=== PATIENT | female | born 1995 | race Caucasian/White ===

== ENCOUNTER 2020-12-21 10:33 | Emergency (ER) | payer OTHER ==
[~2020-12-21] VITALS: Ht 170.2 cm; Wt 52.2 kg
[2020-12-21 10:41] VITALS: BP 133/80
[2020-12-21] MEDS ORDERED: NACL 0.9% 1,000 ML IV ONE (11:15)
[2020-12-21] MEDS ORDERED: KETOROLAC 30 MG/ML VIAL IVP ONE (11:15)
[2020-12-21 11:31] LABS: BASOPHILS % (AUTO) 0.5 % (0.0-2.0); EOSINOPHILS # (AUTO) 0.2 K/uL (0-0.4); EOSINOPHILS % (AUTO) 2.5 % (0.0-4.0); HEMATOCRIT 38.7 % (36-48); HEMOGLOBIN 13.2 g/dL (12.0-16.0); LYMPHOCYTES # (AUTO) 1.9 K/uL (2.5-16.5); LYMPHOCYTES % (AUTO) 28.3 % (20.5-51.1); MEAN CORPUSCULAR HEMOGLOBIN 31 pg (27-31); MEAN CORPUSCULAR HGB CONC 34 g/dL (33-37); MEAN CORPUSCULAR VOLUME 92.2 fL (80-94); MONOCYTES # (AUTO) 0.5 K/uL (0.8-1.0); MONOCYTES % (AUTO) 6.9 % (1.7-9.3); NEUTROPHILS # (AUTO) 4.1 K/uL (1.8-7.7); NEUTROPHILS % (AUTO) 61.8 % (42.2-75.2); PLATELET COUNT (AUTO) 217 K/uL (140-450); RED CELL DISTRIBUTION WIDTH 13.5 % (11.6-13.7); WHITE BLOOD COUNT (AUTO) 6.6 K/uL (4.8-10.8)
[2020-12-21 11:32] LABS: BILIRUBIN,URINE NEGATIVE (NEGATIVE); COLOR,URINE YELLOW (YELLOW); LEUKOCYTE ESTERASE ,URINE NEGATIVE (NEGATIVE); NITRITE, URINE NEGATIVE (NEGATIVE); UGLUCOSE NEGATIVE (NEGATIVE)
[2020-12-21 11:40] LABS: CREATININE 0.7 mg/dL (0.6-1.3)
[2020-12-21 11:40] LABS: WBC,URINE 0-5 /HPF (0-5)
[2020-12-21 11:43] LABS: APPEARANCE,URINE SLIGHTLY HAZY (CLEAR); BLOOD, URINE 1+ (NEGATIVE); RBC,URINE 0-5 /HPF (0-5)
[2020-12-21 11:46] LABS: ALBUMIN 4.2 g/dL (3.4-5.0); TOTAL BILIRUBIN 0.6 mg/dL (0.0-1.0)
[2020-12-21] MEDS ORDERED: DICYCLOMINE 20 MG/2 ML VIAL IM ONE (12:10)
[2020-12-21] MEDS ORDERED: BEN10 PO (13:06)
[2020-12-21 13:22] VITALS: BP 120/82
== END 2020-12-21 13:22 | disposition home or self-care (01) ==
LOC: MED 10:33
DX: R10.11 Right upper quadrant pain (principal)
CPT/HCPCS: 36415; 74177; 76705; 80053; 81001; 81025; 83690; 85025; 96361; 96372; 96374; 99285; J0500; J1885; J7030; Q9967

== ENCOUNTER 2021-12-22 11:05 | Emergency (ER) | payer OTHER ==
[~2021-12-22] VITALS: Ht 170.2 cm; Wt 51.7 kg
[~2021-12-22 11:05] MED LIST: BEN10 PO
[2021-12-22 11:10] VITALS: BP 126/63
--- NOTE | 2021-12-22 11:49 | NUR ---
26 Y/O FEMALE BIB SELF C/O VAGINAL BLEEDING X YESTERDAY. PT STATED THAT SHE HAD UNPROTECTED SEXUAL INTERCOURSE WITH HER BOYFRIEND YESTERDAY AND NOTED BLOOD DURING. DENIED ANY PAIN OR DISCOMFROT DURING OR AFTER. THIS MORNING THEY HAD ANOTHER ROUND OF INTERCOURSE BUT NOW PROTECTED, AGAIN NOTED BRIGHT RED BLEEDING ON THE AREA. AFTER A FEW HOURS NOW C/O OF BLOATING BY THE LOWER ABDOMEN AND PRESSURE, PAIN 7/10. STATED THAT THE BLEEDING IS NOW LIKE "SPOTTING". DENIED ANY DIZZINESS, PAIN IN THE VAGINAL AREA, OR LOWER BACK PAIN, DENIED ANY MEDICATION FOR PAIN NKA PMH: DENIED
--- NOTE | 2021-12-22 12:25 | NUR ---
PATIENT C/O FEELING ANXIOUS. DR. CHEN MADE AWARE.
--- NOTE | 2021-12-22 12:50 | NUR ---
LAB AT BEDSIDE
[2021-12-22 13:05] LABS: APPEARANCE,URINE CLEAR (CLEAR); BILIRUBIN,URINE 1+ (NEGATIVE); BLOOD, URINE 2+ (NEGATIVE); COLOR,URINE DARK YELLOW (YELLOW); LEUKOCYTE ESTERASE ,URINE NEGATIVE (NEGATIVE); NITRITE, URINE NEGATIVE (NEGATIVE); UGLUCOSE NEGATIVE (NEGATIVE)
[2021-12-22 13:06] LABS: BASOPHILS # (AUTO) 0.1 K/uL (0.00-0.22); BASOPHILS % (AUTO) 1.1 % (0.0-2.0); EOSINOPHILS # (AUTO) 0.1 K/uL (0-0.4); EOSINOPHILS % (AUTO) 1.2 % (0.0-4.0); HEMATOCRIT 36.7 % (36-48); HEMOGLOBIN 12.6 g/dL (12.0-16.0); LYMPHOCYTES # (AUTO) 1.6 K/uL (2.5-16.5); LYMPHOCYTES % (AUTO) 25.1 % (20.5-51.1); MEAN CORPUSCULAR HEMOGLOBIN 31 pg (27-31); MEAN CORPUSCULAR HGB CONC 34 g/dL (33-37); MONOCYTES # (AUTO) 0.5 K/uL (0.8-1.0); MONOCYTES % (AUTO) 7.7 % (1.7-9.3); NEUTROPHILS % (AUTO) 64.9 % (42.2-75.2); PLATELET COUNT (AUTO) 213 K/uL (140-450); RED BLOOD CELL COUNT(AUTO) 4.08 MIL/uL (4.20-5.40); WHITE BLOOD COUNT (AUTO) 6.2 K/uL (4.8-10.8)
--- NOTE | 2021-12-22 13:15 | NUR ---
Female Crystal Cutter accompanied female patient for Pelvic Exam.
[2021-12-22 13:28] LABS: RBC,URINE 0-5 /HPF (0-5)
[2021-12-22 13:29] LABS: WBC,URINE 0-5 /HPF (0-5)
[2021-12-22 13:30] LABS: CALCIUM OXALATE CRYSTALS,UR 0-10 /HPF (None Seen); OTHER CASTS, URINE None Seen /LPF (None Seen)
[2021-12-22 13:41] VITALS: BP 119/67
--- NOTE | 2021-12-22 13:43 | NUR ---
Patient discharged with v/s stable. Written and verbal after care instructions given and explained. Patient verbalized understanding. Ambulatory with steady gait. All questions addressed prior to discharge. Advised to follow up with PMD.
== END 2021-12-22 13:43 | disposition home or self-care (01) ==
LOC: MED 11:05
DX: N93.9 Abnormal uterine and vaginal bleeding, unspecified (principal); N83.209 Unspecified ovarian cyst, unspecified side
CPT/HCPCS: 36415; 76830; 81001; 81025; 85025; 86886; 86900; 86901; 87210; 87491; 99284; Q0092

== ENCOUNTER 2022-03-12 09:48 | Emergency (ER) | payer OTHER ==
[~2022-03-12] VITALS: Ht 170.2 cm; Wt 51.4 kg
[2022-03-12 09:54] VITALS: BP 98/71
--- NOTE | 2022-03-12 10:01 | NUR ---
PT AMB TO BED 11
--- NOTE | 2022-03-12 10:20 | NUR ---
WALKED IN C/O INTERMITTENT VAGINAL BLEED ONSET 2 MONTHS AGO. C/O WEAKNESS, NAUSEA ONSET 2 DAYS. DENIES TRAUMA OR . VSS, URINE COLLECTED PMH: ENDOMETRIOISIS. SEBASTIAN
[2022-03-12 10:48] LABS: BASOPHILS # (AUTO) 0.1 K/uL (0.00-0.22); BASOPHILS % (AUTO) 0.7 % (0.0-2.0); EOSINOPHILS # (AUTO) 0.2 K/uL (0-0.4); EOSINOPHILS % (AUTO) 2.5 % (0.0-4.0); HEMATOCRIT 42.1 % (36-48); HEMOGLOBIN 14.5 g/dL (12.0-16.0); LYMPHOCYTES # (AUTO) 2.2 K/uL (2.5-16.5); LYMPHOCYTES % (AUTO) 27.9 % (20.5-51.1); MEAN CORPUSCULAR HEMOGLOBIN 31 pg (27-31); MEAN CORPUSCULAR HGB CONC 34 g/dL (33-37); MEAN CORPUSCULAR VOLUME 89.9 fL (80-94); MONOCYTES # (AUTO) 0.7 K/uL (0.8-1.0); MONOCYTES % (AUTO) 8.3 % (1.7-9.3); NEUTROPHILS # (AUTO) 4.8 K/uL (1.8-7.7); NEUTROPHILS % (AUTO) 60.6 % (42.2-75.2); PLATELET COUNT (AUTO) 275 K/uL (140-450); RED BLOOD CELL COUNT(AUTO) 4.69 MIL/uL (4.20-5.40); WHITE BLOOD COUNT (AUTO) 7.9 K/uL (4.8-10.8)
--- NOTE | 2022-03-12 10:55 | NUR ---
US AT BEDSIDE
[2022-03-12 12:30] VITALS: BP 111/65
== END 2022-03-12 12:30 | disposition home or self-care (01) ==
LOC: MED 09:48
DX: N93.8 Other specified abnormal uterine and vaginal bleeding (principal); Z79.899 Other long term (current) drug therapy
CPT/HCPCS: 36415; 76830; 81002; 81025; 85025; 99284; Q0092

== ENCOUNTER 2022-10-25 16:42 | Emergency (ER) | payer OTHER ==
[~2022-10-25] VITALS: Ht 170.2 cm; Wt 55.3 kg
[2022-10-25 17:00] VITALS: BP 124/84
--- NOTE | 2022-10-25 17:20 | NUR ---
27/F WALKED IN ACCOMPANIED BY MOM C/O VAGINAL BLEED AND PELVIC PAIN. PT REPORTS TISSUE COMING OUT DURING THE BLEED. DENIES DYSURIA OR FREQUENCY. NKA PMH: GASTROPARESIS, ENDOMETRIOSIS
--- NOTE | 2022-10-25 17:44 | NUR ---
PT UNABLE TO PROVIDE URINE AT THIS TIME.
[2022-10-25 18:16] LABS: APPEARANCE,URINE CLEAR (CLEAR); BILIRUBIN,URINE NEGATIVE (NEGATIVE); BLOOD, URINE NEGATIVE (NEGATIVE); COLOR,URINE YELLOW (YELLOW); LEUKOCYTE ESTERASE ,URINE NEGATIVE (NEGATIVE); NITRITE, URINE NEGATIVE (NEGATIVE); PH,URINE 5.5 (5.0-9.0); UGLUCOSE NEGATIVE (NEGATIVE)
[2022-10-25 18:35] LABS: BASOPHILS % (AUTO) 0.5 % (0.0-2.0); EOSINOPHILS # (AUTO) 0.1 K/uL (0-0.4); EOSINOPHILS % (AUTO) 0.8 % (0.0-4.0); HEMATOCRIT 37.9 % (36-48); HEMOGLOBIN 13.1 g/dL (12.0-16.0); LYMPHOCYTES % (AUTO) 23.7 % (20.5-51.1); MEAN CORPUSCULAR HEMOGLOBIN 30 pg (27-31); MEAN CORPUSCULAR HGB CONC 35 g/dL (33-37); MEAN CORPUSCULAR VOLUME 87.5 fL (80-94); MONOCYTES # (AUTO) 0.6 K/uL (0.8-1.0); MONOCYTES % (AUTO) 6.7 % (1.7-9.3); NEUTROPHILS # (AUTO) 5.8 K/uL (1.8-7.7); NEUTROPHILS % (AUTO) 68.3 % (42.2-75.2); PLATELET COUNT (AUTO) 243 K/uL (140-450); RED BLOOD CELL COUNT(AUTO) 4.33 MIL/uL (4.20-5.40); RED CELL DISTRIBUTION WIDTH 13.3 % (11.6-13.7); WHITE BLOOD COUNT (AUTO) 8.5 K/uL (4.8-10.8)
[2022-10-25 18:55] LABS: ANION GAP 16.2 (8-16); CARBON DIOXIDE 23.8 mmol/L (21-32); CREATININE 0.8 mg/dL (0.6-1.3)
[2022-10-25] MEDS ORDERED: MEDR10TA PO (19:18)
--- NOTE | 2022-10-25 19:26 | NUR ---
Pt requested for ultrasound, ERMD made aware and per ERMD emergent ultrasound not needed at this time and instructions were given to pt to follow up with PCP and for outpatient ultrasound.
[2022-10-25 19:30] VITALS: BP 124/84
--- NOTE | 2022-10-25 19:38 | NUR ---
Patient discharged with v/s stable. Written and verbal after care instructions given and explained. Patient verbalized understanding. New rx provera. Ambulatory with steady gait. All questions addressed prior to discharge. Advised to follow up with PMD.
== END 2022-10-25 19:30 | disposition home or self-care (01) ==
LOC: MED 16:42
DX: N93.8 Other specified abnormal uterine and vaginal bleeding (principal); Z79.899 Other long term (current) drug therapy
CPT/HCPCS: 36415; 80048; 81003; 81025; 84703; 85025; 86901; 99283